=== PATIENT | male | born 1990 | race Caucasian/White ===

== ENCOUNTER 2017-11-25 12:57 | Emergency (ER) | payer SELFPAY ==
[~2017-11-25] VITALS: Ht 170.2 cm; Wt 63.5 kg
[~2017-11-25 12:57] MED LIST: CLN150C1RX; DOXY100C2 PO; HYDROCODONE; METH4TAB PO; MOTRIN; MUPI1OIN5 NS; PROMETHAZINE HCL; RIFA300C39 PO; SULF1TAB38 PO; TRM50T PO
--- NOTE | 2017-11-25 15:19 | ED Integumentary General ---
General Chief Complaint: Skin/Wound Problems Stated Complaint: ARM,BACK,LEG PAIN Nursing Triage Note: ARRIVED VIA AMB TO ROOM 03. STATES HE HAS A SKIN DISORDER THAT HE HAS BEEN SEEING A FUNERAL DIRECTOR/EMBALMER/OWNER FOR BUT HAS BEEN DROPPED FROM THEIR CARE FOR NON INSURANCE. PT HAS HAD THIS DISORDER FOR ABOUT 10 YEARS. STATES HE WOULD LIKE SOMETHING TO HELP CALM THE SKIN DISORDER AND TAKE AWAY THE PAIN. PT HAS A FOUL ODER PRESENT FROM THE SKIN DISRORDER. Source: patient Exam Limitations: no limitations History of Present Illness Date Seen by Provider: November 25, 2017 Time Seen by Provider: 15:19 Initial Comments PATIENT PRESENTS TO THE ED WITH C/O A SKIN DISORDER THAT HE HAS HAD FOR APPROXIMATELY 10 YEARS. PATIENT STATES HE WAS PREVIOUSLY SEEING A FUNERAL DIRECTOR/EMBALMER/OWNER FOR THE CONDITION, BUT NEVER RECEIVED A DEFINITE DIAGNOSIS. PATIENT RECENTLY LOST HIS INSURANCE AND IS NOT ABLE TO SEE THE FUNERAL DIRECTOR/EMBALMER/OWNER FOR FOLLOW-UP. REPORTS FOUL ODOR IS NORMAL FOR THE SKIN LESIONS. REPORTS PAIN HAS BEEN WORSE RECENTLY. HAS TRIED OTC MOTRIN AND TYLENOL WITHOUT RELIEF. PATIENT IS SCHEDULED IN DECEMBER FOR NEW PATIENT VISIT WITH [facility]. Timing/Duration: getting worse (PROGRESSIVELY GETTING WORSE.), other (10 YEAR ONSET.) Location: generalized Modifying Factors: worse with other (PAIN IS WORSE WITH PALPATION) Allergies and Home Medications Allergies Coded Allergies: No Known Drug Allergies (Unverified , 07/03/11) Home Medications Hydrocodone/Acetaminophen 1 Each Tablet, 1 EACH PO Q4H PRN for PAIN-MODERATE TO SEVERE Prescribed by: SANDY ALFREDO on 11/25/17 1624 Prednisone 20 Mg Tab, 40 MG PO DAILY Prescribed by: SANDY ALFREDO on 11/25/17 1624 Trimethoprim/Sulfamethoxazole 1 Ea Tablet, 1 EA PO DAILY, (Reported) Patient Home Medication List Home Medication List Reviewed: Yes Constitutional: No chills, No fever, No malaise EENTM: no symptoms reported Respiratory: no symptoms reported Cardiovascular: no symptoms reported Gastrointestinal: no symptoms reported Skin: see HPI, lesions Psychiatric/Neurological: No Symptoms Reported All Other Systems Reviewed Negative Unless Noted: Yes (Negative excepted noted.) Past Npgcuzl-Tkatyx-Maxijw Hx Patient Social History Alcohol Use: Denies Use Recreational Drug Use: No Smoking Status: Current Everyday Smoker Recent Foreign Travel: No Contact w/Someone Who Travel: No Recent Infectious Disease Expo: No Recent Hopitalizations: No Seasonal Allergies Seasonal Allergies: No Past Medical History Surgeries: No Respiratory: No Cardiac: No Neurological: No Genitourinary: No Gastrointestinal: No Musculoskeletal: No Endocrine: No HEENT: No Cancer: No Psychosocial: No Integumentary: Yes Blood Disorders: No Family Medical History Reviewed Nursing Family Hx No Pertinent Family Hx Physical Exam Vital Signs Capillary Refill : Less Than 3 Seconds General Appearance: WD/WN, no apparent distress HEENT: PERRL/EOMI, pharynx normal Neck: supple, normal inspection Cardiovascular: normal peripheral pulses, regular rate, rhythm, no edema, no murmur Respiratory: lungs clear, normal breath sounds, no respiratory distress, no accessory muscle use Extremities: no pedal edema, normal capillary refill Neurologic/Psychiatric: alert, normal mood/affect, oriented x 3 Skin: normal color, warm/dry, other (MALODOROUS LESIONS OF THE TORSO (ANTERIOR AND POSTERIOR) AND ALL 4 EXTREMITIES. NO DRAINAGE NOTED. MODERATE TO SEVERE SCARRING NOTED. ) Skin Problem Location: upper extremities, torso, lower extremities Skin Problem Character: tenderness, other (MALODOROUS LESIONS OF THE TORSO ( ANTERIOR AND POSTERIOR) AND ALL 4 EXTREMITIES. NO DRAINAGE NOTED. MODERATE TO SEVERE SCARRING NOTED. ) Progress/Results/Core Measures Results/Orders My Orders Orders - SANDY ALFREDO Morphine Injection (Morphine Injection (11/25/17 15:56) Im/Sub-Q Injection Non-Ab Ed (11/25/17 ) Vital Signs/I&O Blood Pressure Mean: 87 Departure Communication (Admissions) PATIENT SEEN AND EVALUATED. PLAN FOR DSCH TO HOME WITH F/U AN OUTPATIENT WITH [facility] PREVIOUSLY SCHEDULED. Impression Primary Impression: Chronic pain Qualified Codes: G89.29 - Other chronic pain Additional Impression: Rash Disposition: 01 HOME, SELF-CARE Condition: Improved Departure-Patient Inst. Decision time for Depature: 16:19 Referrals: NO,LOCAL PHYSICIAN (PCP) Primary Care Physician [facility] Patient Instructions: Wound Care (DC) Add. Discharge Instructions: All discharge instructions reviewed with patient and/or family. Voiced understanding. Medications as instructed. Ibuprofen 800 mg by mouth every 8 hours as needed for pain. Follow-up with [facility] as previously scheduled. Return to the emergency department for worsened symptoms or any other concerns. Scripts Hydrocodone/Acetaminophen (Hydrocodone-Acetamin 5-325 mg) 1 Each Tablet 1 EACH PO Q4H PRN for PAIN-MODERATE TO SEVERE, #20 TAB 0 Refills Prov: SANDY ALFREDO 11/25/17 Prednisone (Prednisone) 20 Mg Tab 40 MG PO DAILY, #10 TAB 0 Refills Prov: SANDY ALFREDO 11/25/17 SANDY ALFREDO November 25, 2017 15:19
[2017-11-25] MEDS ORDERED: morphine INJ 10 MG/ML 1ML (SYR OR VIAL) IM STA (15:56)
[2017-11-25] MEDS ORDERED: PRD20T PO (16:24)
[2017-11-25] MEDS ORDERED: HYDR-3812 PO (16:24)
[2017-11-25 16:56] VITALS: BP 102/70
== END 2017-11-25 16:56 | disposition home or self-care (01) ==
LOC: EDUNIT# 12:57 → ER 12:59
DX: G89.29 Other chronic pain (principal); M54.9 Dorsalgia, unspecified; M79.606 Pain in leg, unspecified; M79.603 Pain in arm, unspecified; F17.200 Nicotine dependence, unspecified, uncomplicated
CPT/HCPCS: 96372; 99284

== ENCOUNTER 2018-04-10 09:52 | Emergency (ER) | payer SELFPAY ==
[~2018-04-10] VITALS: Ht 167.6 cm; Wt 64.9 kg
[~2018-04-10 09:52] MED LIST changes: +HYDR-3812 PO; +PRD20T PO
--- OUTSIDE RECORDS SUMMARY | 2018-04-10 09:56 | XMS REPORT ---
Author Author ARTEMIO BUSCH Organization [facility] Address [address] [place] [address] Care Team Providers Care Case Planner Name Role Phone ARTEMIO BUSCH Unavailable PROBLEMS Type Condition ICD9-CM Code [id number] Code Onset Dates Condition Status SNOMED Code Problem Seasonal allergies J30.2 Active 407476679 Problem Psoriasis and similar disorders L40.9 Active 7567734 Problem Hay fever J30.1 Active 82313643 Problem Psoriasis L40.9 Active 1708034 ALLERGIES No Known Allergies ENCOUNTERS Encounter Location Date Diagnosis [facility] [address] [address] Mar, [facility] [address] [address] Feb, Psoriasis L40.9 [facility] [address] [address] Feb, Psoriasis L40.9 [facility] [address] [address] Feb, Psoriasis and similar disorders L40.9 ; Cough in adult R05 and Seasonal allergies J30.2 [facility] [address] [address] Feb, [facility] [address] [place] [id number] [place] [address] Jan, Hay fever J30.1 [facility] [address] [address] Dec, Hordeolum externum of left lower eyelid H00.015 [facility] [address] [address] Dec, [facility] [address] [facility] [id number] [place] [address] November, Psoriasis L40.9 [facility] [address] [facility] [id number] [place] [address] Sep, IMMUNIZATIONS No Known Immunizations SOCIAL HISTORY Never Assessed REASON FOR VISIT psoriasis. needs treatment for psoriasis on body . Took humira in the past and not on anything at this time. [address] PLAN OF CARE Activity Details Follow Up prn Reason: VITAL SIGNS Height 67 in 2018-02-12 Weight 138 lbs 2018-02-12 Temperature 98 degrees Fahrenheit 2018-02-12 Heart Rate 80 bpm 2018-02-12 Respiratory Rate 18 2018-02-12 BMI 21.61 kg/m2 2018-02-12 Blood pressure systolic 118 mmHg 2018-02-12 Blood pressure diastolic 70 mmHg 2018-02-12 MEDICATIONS Medication Instructions Dosage Frequency Start Date End Date Duration Status PredniSONE 20 mg Orally Once a day 2 tablets 24h 05 days Active RESULTS No Results PROCEDURES No Known procedures INSTRUCTIONS MEDICATIONS ADMINISTERED No Known Medications MEDICAL (GENERAL) HISTORY Type Description Date Medical History psoriasis 2012 Surgical History mouth surgery 2007 Surgical History tonsillectomy Hospitalization History surgery
--- OUTSIDE RECORDS SUMMARY | 2018-04-10 09:56 | XMS REPORT ---
Author Author KRISTOFER BUSCH Organization [facility] Address [address] [place] [address] Care Team Providers Care Company Doctor Name Role Phone KRISTOFER BUSCH Unavailable PROBLEMS Type Condition ICD9-CM Code [id number] Code Onset Dates Condition Status SNOMED Code Problem Seasonal allergies J30.2 Active 422610306 Problem Psoriasis and similar disorders L40.9 Active 8920603 Problem Hay fever J30.1 Active 74787947 Problem Psoriasis L40.9 Active 3623935 ALLERGIES No Information ENCOUNTERS Encounter Location Date Diagnosis [facility] [address] [address] Feb, Psoriasis L40.9 [facility] [address] [address] Feb, Psoriasis L40.9 [facility] [address] [address] Feb, Psoriasis and similar disorders L40.9 ; Cough in adult R05 and Seasonal allergies J30.2 [facility] [address] [address] Feb, [facility] [address] [address] Jan, Hay fever J30.1 [facility] [address] [address] Dec, Hordeolum externum of left lower eyelid H00.015 [facility] [address] [address] Dec, [facility] [address] [address] November, Psoriasis L40.9 [facility] [address] [facility] [id number] [place] [address] Sep, IMMUNIZATIONS No Known Immunizations SOCIAL HISTORY Never Assessed REASON FOR VISIT eye irritation PLAN OF CARE Activity Details Follow Up prn Reason:if symptoms worsen or not improving VITAL SIGNS MEDICATIONS Medication Instructions Dosage Frequency Start Date End Date Duration Status Gentamicin Sulfate 0.3 % Ophthalmic every 4 hrs 1 drop into affected eye Dec, 07 days Active RESULTS No Results PROCEDURES No Known procedures INSTRUCTIONS MEDICATIONS ADMINISTERED No Known Medications MEDICAL (GENERAL) HISTORY Type Description Date Medical History psoriasis 2012 Surgical History mouth surgery 2007 Surgical History tonsillectomy Hospitalization History surgery
--- OUTSIDE RECORDS SUMMARY | 2018-04-10 09:56 | XMS REPORT ---
Author Author ENE DORANTES [facility] IN [facility] Address [address] [place] [address] Care Team Providers Care Vacuum Extractor Operator Name Role Phone ENE DORANTES Unavailable PROBLEMS Type Condition ICD9-CM Code [id number] Code Onset Dates Condition Status SNOMED Code Problem Seasonal allergies J30.2 Active 457712295 Problem Psoriasis and similar disorders L40.9 Active 2493136 Problem Hay fever J30.1 Active 05512852 Problem Psoriasis L40.9 Active 5331006 ALLERGIES No Known Allergies ENCOUNTERS Encounter Location Date Diagnosis [facility] IN [facility] [address] [address] Feb, Psoriasis L40.9 [facility] [address] [address] Feb, Psoriasis L40.9 [place] [address] [address] Feb, Psoriasis and similar disorders L40.9 ; Cough in adult R05 and Seasonal allergies J30.2 [facility] [id number] [place] [address] Feb, [facility] [id number] [place] [address] Jan, Hay fever J30.[address] [facility] IN [facility] [address] [address] Dec, Hordeolum externum of left lower eyelid H00.015 [facility] [id number] [place] [address] Dec, [facility] [address], [place] [id number] November, Psoriasis L40.9 [facility] [address] [facility] [id number] [address] Sep, IMMUNIZATIONS Vaccine Route Administration Date Status SOLUMEDROL (UP TO 125 MG) IM Intramuscular January 24, 2018 Administered SOCIAL HISTORY Never Assessed REASON FOR VISIT congestion, cough x1 week JStrasserRN PLAN OF CARE Activity Details Follow Up prn Reason: VITAL SIGNS Height 67 in 2018-01-24 Weight 136.0 lbs 2018-01-24 Temperature 98.5 degrees Fahrenheit 2018-01-24 Heart Rate 96 bpm 2018-01-24 Respiratory Rate 20 2018-01-24 BMI 21.30 kg/m2 2018-01-24 Blood pressure systolic 104 mmHg 2018-01-24 Blood pressure diastolic 66 mmHg 2018-01-24 MEDICATIONS Medication Instructions Dosage Frequency Start Date End Date Duration Status DayQuil Multi-Symptom Active NyQuil Active RESULTS No Results PROCEDURES Procedure Date Ordered Result Body Site SOLUMEDROL (UP TO 125 MG) January 24, 2018 THER/PROPH/DIAG INJ, SC/IM January 24, 2018 INSTRUCTIONS MEDICATIONS ADMINISTERED No Known Medications MEDICAL (GENERAL) HISTORY Type Description Date Medical History psoriasis 2012 Surgical History mouth surgery 2007 Surgical History tonsillectomy Hospitalization History surgery
--- OUTSIDE RECORDS SUMMARY | 2018-04-10 09:56 | XMS REPORT ---
Author Author KRISTOFER BUSCH Organization [facility] Address [address] [place] [address] Care Team Providers Care Supply Controller Name Role Phone KRISTOFER BUSCH Unavailable PROBLEMS Type Condition ICD9-CM Code ENY27-NO Code Onset Dates Condition Status SNOMED Code Problem Seasonal allergies J30.2 Active 572269334 Problem Psoriasis and similar disorders L40.9 Active 1455792 Problem Hay fever J30.1 Active 63973677 Problem Psoriasis L40.9 Active 4617904 ALLERGIES No Known Allergies ENCOUNTERS Encounter Location Date Diagnosis [facility] [address] [address] Mar, [facility] [address] [address] Feb, Psoriasis L40.9 [facility] [address] [address] Feb, Psoriasis L40.9 [facility] [address] [address] Feb, Psoriasis and similar disorders L40.9 ; Cough in adult R05 and Seasonal allergies J30.2 [facility] [address] [address] Feb, [facility] [address] [address] Jan, Hay fever J30.1 [facility] [id number] [place] [address] Dec, Hordeolum externum of left lower eyelid H00.015 [facility] [address] [address] Dec, [facility] [address] [facility] [id number] [place] [address] November, Psoriasis L40.9 [facility] [address] [facility] [id number] [place] [address] Sep, IMMUNIZATIONS No Known Immunizations SOCIAL HISTORY Never Assessed REASON FOR VISIT sores all over body. has seen facs teacher et been to the [facility] for this same complaint. reports they are painful. has appt in on 04/15/2018. took him off all medications before the appt. vincenzo PLAN OF CARE Activity Details Follow Up 04/15 w/ [facility] Reason:psoriasis VITAL SIGNS Height 67 in 2018-03-05 Weight 142.2 lbs 2018-03-05 Temperature 98.6 degrees Fahrenheit 2018-03-05 Heart Rate 76 bpm 2018-03-05 Respiratory Rate 20 2018-03-05 BMI 22.27 kg/m2 2018-03-05 Blood pressure systolic 120 mmHg 2018-03-05 Blood pressure diastolic 70 mmHg 2018-03-05 MEDICATIONS Medication Instructions Dosage Frequency Start Date End Date Duration Status Gabapentin 600 MG Orally 3 times a day 1 tablet 8h Active Bactrim Active Ibuprofen 200 MG Orally Three times a day 1 tablet with food or milk as needed 8h Active Sulfamethoxazole-Trimethoprim 800-160 MG Orally Twice a day 1 tablet 12h Feb, Mar, 10 day(s) Active PredniSONE 20 mg Orally Once a day 2 tablets 24h Feb, Mar, 10 days Active RESULTS No Results PROCEDURES No Known procedures INSTRUCTIONS MEDICATIONS ADMINISTERED No Known Medications MEDICAL (GENERAL) HISTORY Type Description Date Medical History psoriasis 2012 Surgical History mouth surgery 2007 Surgical History tonsillectomy Hospitalization History surgery
--- OUTSIDE RECORDS SUMMARY | 2018-04-10 09:56 | XMS REPORT ---
Author Author LIZZYTREVINJUICE Organization [facility] Address [address] [place] [address] Care Team Providers Care Assembler Molded Frames Name Role Phone BALLTREVIN PedroELE Unavailable PROBLEMS Type Condition ICD9-CM Code [id number] Code Onset Dates Condition Status SNOMED Code Problem Seasonal allergies J30.2 Active 744177298 Problem Psoriasis and similar disorders L40.9 Active 0108077 Problem Hay fever J30.1 Active 78169240 Problem Psoriasis L40.9 Active 3442225 ALLERGIES No Information ENCOUNTERS Encounter Location Date Diagnosis [facility] [address] [address] Feb, Psoriasis L40.9 [facility] [address] [address] Feb, Psoriasis and similar disorders L40.9 ; Cough in adult R05 and Seasonal allergies J30.2 [facility] [address] [address] Feb, [facility] [address] [address] Jan, Hay fever J30.1 [facility] [address] [address] Dec, Hordeolum externum of left lower eyelid H00.015 [facility] [address] [address] Dec, [facility] [address] [address] November, Psoriasis L40.9 [facility] [address] [address] Sep, IMMUNIZATIONS No Known Immunizations SOCIAL HISTORY Never Assessed REASON FOR VISIT Requests return call PLAN OF CARE VITAL SIGNS MEDICATIONS No Known Medications RESULTS No Results PROCEDURES No Known procedures INSTRUCTIONS MEDICATIONS ADMINISTERED No Known Medications MEDICAL (GENERAL) HISTORY Type Description Date Medical History psoriasis 2012 Surgical History mouth surgery 2008 Surgical History tonsillectomy Hospitalization History surgery
--- OUTSIDE RECORDS SUMMARY | 2018-04-10 09:56 | XMS REPORT ---
Author Author BALLJUICE Pedro Organization [facility] Address [address] [place] [address] Care Team Providers Care Chicken Dresser Name Role Phone BALLJUICE Pedro Unavailable PROBLEMS Type Condition ICD9-CM Code [id number] Code Onset Dates Condition Status SNOMED Code Problem Seasonal allergies J30.2 Active 302774750 Problem Psoriasis and similar disorders L40.9 Active 2484926 Problem Hay fever J30.1 Active 92327708 Problem Psoriasis L40.9 Active 6361893 ALLERGIES No Known Allergies ENCOUNTERS Encounter Location Date Diagnosis [facility] IN [facility] [address] [address] Mar, [facility] [address] [address] Feb, Psoriasis L40.9 [facility] [address] [address] Feb, Psoriasis L40.9 [facility] [address] [address] Feb, Psoriasis and similar disorders L40.9 ; Cough in adult R05 and Seasonal allergies J30.2 [facility] [address] [address] Feb, [facility] [address] [address] Jan, Hay fever J30.1 [facility] IN [facility] [address] [address] Dec, Hordeolum externum of left lower eyelid H00.015 [facility] [address] [address] Dec, [facility] [address] [facility] [id number] [place] [address] November, Psoriasis L40.9 [facility] [address] [facility] [id number] [place] [address] Sep, IMMUNIZATIONS No Known Immunizations SOCIAL HISTORY Never Assessed REASON FOR VISIT Psoriasis f/u. Pt states he began taking Bactrim from an old script about a week ago and is taking it according to directions on the bottle, does not remember dose. He took some of the pills previously and states he does not have enought to complete the entire course. [facility] PLAN OF CARE Activity Details Follow Up prn Reason: VITAL SIGNS Height 67 in 2018-02-21 Weight 147.4 lbs 2018-02-21 Temperature 98.4 degrees Fahrenheit 2018-02-21 Heart Rate 72 bpm 2018-02-21 Respiratory Rate 16 2018-02-21 BMI 23.08 kg/m2 2018-02-21 Blood pressure systolic 120 mmHg 2018-02-21 Blood pressure diastolic 80 mmHg 2018-02-21 MEDICATIONS Medication Instructions Dosage Frequency Start Date End Date Duration Status Gabapentin 600 MG Orally 3 times a day 1 tablet 8h Active Bactrim Active RESULTS No Results PROCEDURES No Known procedures INSTRUCTIONS MEDICATIONS ADMINISTERED No Known Medications MEDICAL (GENERAL) HISTORY Type Description Date Medical History psoriasis 2012 Surgical History mouth surgery 2007 Surgical History tonsillectomy Hospitalization History surgery
--- OUTSIDE RECORDS SUMMARY | 2018-04-10 09:56 | XMS REPORT ---
Author Author BALLJUICE Pedro Organization [facility] Address [address] [place] [address] Care Team Providers Care Medical Office Specialist Name Role Phone BALLJUICE Pedro Unavailable PROBLEMS Type Condition ICD9-CM Code [id number] Code Onset Dates Condition Status SNOMED Code Problem Seasonal allergies J30.2 Active 772064541 Problem Psoriasis and similar disorders L40.9 Active 8920457 Problem Hay fever J30.1 Active 05323536 Problem Psoriasis L40.9 Active 4218216 ALLERGIES No Information ENCOUNTERS Encounter Location Date Diagnosis [facility] WALK IN [facility] [address] [address] Mar, [facility] [address] [address] Feb, Psoriasis L40.9 [facility] [address] [address] Feb, Psoriasis L40.9 [facility] [address] [address] Feb, Psoriasis and similar disorders L40.9 ; Cough in adult R05 and Seasonal allergies J30.2 [facility] [address] [place] [id number] [place] [address] Feb, [facility] [address] [place] [id number] [place] [address] Jan, Hay fever J30.1 [facility]ALK IN [facility] [address] [address] Dec, Hordeolum externum of left lower eyelid H00.015 [facility] [address] [address] Dec, [facility] [address] [facility] [id number] [place] [address] November, Psoriasis L40.9 [facility] [address] [facility] [id number] [place] [address] Sep, IMMUNIZATIONS No Known Immunizations SOCIAL HISTORY Never Assessed REASON FOR VISIT Repository Medication PLAN OF CARE VITAL SIGNS MEDICATIONS Medication Instructions Dosage Frequency Start Date End Date Duration Status Gabapentin 600 MG Orally 3 times a day 1 capsule 8h Jun, Active RESULTS No Results PROCEDURES No Known procedures INSTRUCTIONS MEDICATIONS ADMINISTERED No Known Medications MEDICAL (GENERAL) HISTORY Type Description Date Medical History psoriasis 2012 Surgical History mouth surgery 2007 Surgical History tonsillectomy Hospitalization History surgery
--- OUTSIDE RECORDS SUMMARY | 2018-04-10 09:56 | XMS REPORT ---
Author Author LIZZYTREVINJUICE Organization [facility] Address [address] [place] [address] Care Team Providers Care Mechanical Spreader Operator Name Role Phone BALLJUICE Pedro Unavailable PROBLEMS Type Condition ICD9-CM Code AVA44-FQ Code Onset Dates Condition Status SNOMED Code Problem Seasonal allergies J30.2 Active 604147616 Problem Psoriasis and similar disorders L40.9 Active 0036266 Problem Hay fever J30.1 Active 64063023 Problem Psoriasis L40.9 Active 9297549 ALLERGIES No Known Allergies ENCOUNTERS Encounter Location Date Diagnosis [facility] [address] [address] Feb, Psoriasis L40.9 [facility] [address] [address] Feb, Psoriasis and similar disorders L40.9 ; Cough in adult R05 and Seasonal allergies J30.2 [facility] [address] [address] Feb, [facility] [address] [address] Jan, Hay fever J30.1 [facility] [address] [address] Dec, Hordeolum externum of left lower eyelid H00.015 [facility] [address] [address] Dec, [facility] [address] [address] November, Psoriasis L40.9 [facility] [address] [address] Sep, IMMUNIZATIONS No Known Immunizations SOCIAL HISTORY Never Assessed REASON FOR VISIT Establish Care (Dr. Clayton Bah from [place], [place] PLAN OF CARE Activity Details Follow Up 3 Months, prn Reason:CHM/psoriasis VITAL SIGNS Height 5ft 7in in 2017-11-29 Weight 135 lbs 2017-11-29 Temperature 98.8 degrees Fahrenheit 2017-11-29 Heart Rate 85 bpm 2017-11-29 Respiratory Rate 18 2017-11-29 BMI 21.14 kg/m2 2017-11-29 Blood pressure systolic 110 mmHg 2017-11-29 Blood pressure diastolic 65 mmHg 2017-11-29 MEDICATIONS Medication Instructions Dosage Frequency Start Date End Date Duration Status Gabapentin 600 MG Orally 3 times a day 1 capsule 8h Jun, Active Prednisone 20 mg Oral twice daily 1 Active RESULTS No Results PROCEDURES No Known procedures INSTRUCTIONS MEDICATIONS ADMINISTERED No Known Medications MEDICAL (GENERAL) HISTORY Type Description Date Medical History psoriasis 2012 Surgical History mouth surgery 2007 Surgical History tonsillectomy Hospitalization History surgery
--- OUTSIDE RECORDS SUMMARY | 2018-04-10 09:56 | XMS REPORT ---
Author Author LIZZYJUICE Organization [facility] Address [address] [place] [address] Care Team Providers Care Celebrity Manager Name Role Phone BALLTREVIN PedroELE Unavailable PROBLEMS Type Condition ICD9-CM Code TAH92-CY Code Onset Dates Condition Status SNOMED Code Problem Pinched nerve G58.9 Active 46876351 Problem Psoriasis and similar disorders L40.9 Active 9513383 Problem Psoriasis L40.9 Active 2057767 Problem Seasonal allergies J30.2 Active 648111326 Problem Hay fever J30.1 Active 97158319 ALLERGIES No Information ENCOUNTERS Encounter Location Date Diagnosis [facility] [address] [address] 30 Mar, 2018 Pinched nerve G58.9 [facility] [address] [address] 14 Mar, 2018 [facility] [address] [address] Feb, Psoriasis L40.9 [facility] [address] [address] 16 Feb, 2018 Psoriasis L40.9 [facility] [address] [address] 07 Feb, 2018 Psoriasis and similar disorders L40.9 ; Cough in adult R05 and Seasonal allergies J30.2 [facility] [address] [address] Feb, [facility] [address] [address] Jan, Hay fever J30.1 [facility] [address] [address] Dec, Hordeolum externum of left lower eyelid H00.015 [facility] [address] [facility] [id number] [address] Dec, [facility] [address] [facility] [id number] [address] November, Psoriasis L40.9 [place] [address] [facility] [id number] [address] Sep, IMMUNIZATIONS No Known Immunizations SOCIAL HISTORY Never Assessed REASON FOR VISIT scrpits PLAN OF CARE VITAL SIGNS MEDICATIONS No Known Medications RESULTS No Results PROCEDURES No Known procedures INSTRUCTIONS MEDICATIONS ADMINISTERED No Known Medications MEDICAL (GENERAL) HISTORY Type Description Date Medical History psoriasis 2012 Surgical History mouth surgery 2007 Surgical History tonsillectomy Hospitalization History surgery
--- NOTE | 2018-04-10 11:42 | ED Upper Extremity ---
General Chief Complaint: Upper Extremity Stated Complaint: L ARM PAIN Nursing Triage Note: Pt reports pain to L elbow and L shoulder and "numbness" feeling from L bicep down to fingers x1 week. Pt reports pain and numbness feeling is worse today. Pt denies any injury. Nursing Sepsis Screen: No Definite Risk Source: patient Exam Limitations: no limitations History of Present Illness Date Seen by Provider: Apr 10, 2018 Time Seen by Provider: 11:40 Initial Comments Patient is a 27-year-old male who presents to the emergency room with complaints of left elbow pain that causes sharp pins and needles to shoot up into his upper arm and shoulder and down to his fingertips for the past week. Patient reports that his pain became worse today when he was trying to install his tailgate onto his truck. Patient cannot recall any injury to the elbow recently but has fractured it in the past. Onset: last week Pain/Injury Location: left elbow Method of Injury: unknown Modifying Factors: Worse With Movement Allergies and Home Medications Allergies Coded Allergies: No Known Drug Allergies (Unverified , 07/03/11) Home Medications Hydrocodone Bit/Acetaminophen 1 Tab Tab, 1 EACH PO Q4-6HR PRN for PAIN-MODERATE Prescribed by: KATHIA CORONA on 04/10/18 1228 Hydrocodone/Acetaminophen 1 Each Tablet, 1 EACH PO Q4H PRN for PAIN-MODERATE TO SEVERE Prescribed by: SANDY ALFREDO on 11/25/17 1624 Prednisone 20 Mg Tab, 40 MG PO DAILY Prescribed by: SANDY ALFREDO on 11/25/17 1624 Trimethoprim/Sulfamethoxazole 1 Ea Tablet, 1 EA PO DAILY, (Reported) Patient Home Medication List Home Medication List Reviewed: Yes Review of Systems Constitutional: see HPI; No chills, No fever Musculoskeletal: see HPI, joint pain (left elbow pain) Psychiatric/Neurological: See HPI, Numbness, Tingling (left elbow) All Other Systems Reviewed Negative Unless Noted: Yes Past Mghiglx-Adqetq-Iejrur Hx Past Med/Social Hx: Reviewed Nursing Past Med/Soc Hx Patient Social History Alcohol Use: Denies Use Recreational Drug Use: No Smoking Status: Current Everyday Smoker Recent Foreign Travel: No Contact w/Someone Who Travel: No Recent Infectious Disease Expo: No Recent Hopitalizations: No Seasonal Allergies Seasonal Allergies: No Past Medical History Surgeries: Yes (oral surgery) Tonsillectomy Respiratory: No Cardiac: No Neurological: No Genitourinary: No Gastrointestinal: No Musculoskeletal: No Endocrine: No HEENT: No Cancer: No Psychosocial: No Integumentary: Yes Blood Disorders: No Family Medical History Reviewed Nursing Family Hx No Pertinent Family Hx Physical Exam Vital Signs Vital Signs - First Documented 04/10/18 11:10 Temp 97.4 Pulse 102 Resp 18 B/P (MAP) 111/74 (86) Pulse Ox 99 O2 Delivery Room Air Capillary Refill : Less Than 3 Seconds Height, Weight, BMI Height: 5'6.00" Weight: 143lbs. oz. 64.521266kz; BMI Method:Stated General Appearance: WD/WN, no apparent distress Neck: non-tender, full range of motion, supple, normal inspection Cardiovascular: normal peripheral pulses, regular rate, rhythm, no edema, no gallop, no JVD, no murmur Respiratory: chest non-tender, lungs clear, normal breath sounds, no respiratory distress, no accessory muscle use Elbow/Forearm: normal inspection, non-tender, no evidence of injury, Bilateral Neurologic/Tendon: normal sensation, normal motor functions, normal tendon functions, responds to pain, no evidence tendon injury, other (normal distal pulses) Neurologic/Psychiatric: alert, normal mood/affect, oriented x 3 Skin: normal color, warm/dry Progress/Results/Core Measures Results/Orders My Orders Vital Signs/I&O Blood Pressure Mean: 86 Progress Progress Note : Time: 12:20 Progress Note I have seen and evaluated the patient. I am recommending that he follows up with ortho due to the tinging sensation that he is feeling. I have informed him of normal imaging studies but there may be a need for MRI in the near future. he agrees with plan of care. Return precautions were given. Diagnostic Imaging Diagonstic Imaging: Xray Plain Films/CT/US/NM/MRI: elbow Comments NAME: HIRA HUMPHRIES [facility] REC#: [id number] PHYSICIAN: KATHIA CORONA CC: KATHIA CORONA; JIMI CENTENO MD Page 1 of 1 RADIOLOGY REPORT VIA [facility]. [place], [place] CC: KATHIA CORONA; JIMI CENTENO MD Page 1 of 1 RADIOLOGY REPORT NAME: HIRA HUMPHRIES [facility] REC#: [id number] PT STATUS: DEP ER : 1990 PHYSICIAN: KATHIA CORONA ADMIT DATE: 04/10/18/ER Signed Date of Exam: 04/10/18 ELBOW, LEFT, 3 VIEWS INDICATION: Left elbow pain. TIME OF EXAM: 12:18 PM Three views of the left elbow were obtained. The alignment is normal. The joint spaces are well maintained. No fracture, dislocation or effusion is seen. IMPRESSION: No acute bony abnormality is detected. Dictated by: Dictated on workstation # [id number] Dict: 04/10/18 1207 Trans: 04/10/18 1538 Interpreted by: JIMI CENTENO MD Electronically signed by: JIMI CENTENO MD 04/10/18 1538 Reviewed: Reviewed by Me Departure Impression Primary Impression: Left elbow pain Disposition: 01 HOME, SELF-CARE Condition: Stable/Unchanged Departure-Patient Inst. Decision time for Depature: 12:27 Referrals: NO,LOCAL PHYSICIAN (PCP) Primary Care Physician ARTEMIO PRINCE MD Patient Instructions: Elbow Sprain (DC), How to Use a Shoulder Sling Add. Discharge Instructions: Take medications as directed. Rest the elbow as much as possible. Wear the sling as needed for comfort. Tylenol and ibuprofen [id number] as needed for pain, takes hydrocodone for any pain unrelieved by ibuprofen and Tylenol. Do not exceed your daily Tylenol limit of 3000 mg. Follow-up with an orthopedic surgeon within 1 week for recheck. Return back to the emergency room for any worsening symptoms or concerns as needed. All discharge instructions reviewed with patient and/or family. Voiced understanding. Scripts Hydrocodone Bit/Acetaminophen (Hydrocodone/Acetaminophen 5/325mg Tablet) 1 Tab Tab 1 EACH PO Q4-6HR PRN for PAIN-MODERATE MDD 10, #14 TAB Prov: KATHIA CORONA 04/10/18 KATHIA CORONA Apr 10, 2018 11:41
--- NOTE | 2018-04-10 12:10 | Diagnostic Imaging Report ---
INDICATION: Left elbow pain. TIME OF EXAM: 12:18 PM Three views of the left elbow were obtained. The alignment is normal. The joint spaces are well maintained. No fracture, dislocation or effusion is seen. IMPRESSION: No acute bony abnormality is detected. Dictated by: Dictated on workstation # [id number]
[2018-04-10] MEDS ORDERED: ACHD5005 PO (12:28)
[2018-04-10 12:42] VITALS: BP 124/71
== END 2018-04-10 12:42 | disposition home or self-care (01) ==
LOC: ER 09:52
DX: M25.522 Pain in left elbow (principal); F17.200 Nicotine dependence, unspecified, uncomplicated; Z90.89 Acquired absence of other organs; Z79.52 Long term (current) use of systemic steroids; X58.XXXA Exposure to other specified factors, initial encounter
CPT/HCPCS: 73080